=== PATIENT | male | born 1980 ===

== ENCOUNTER 2023-10-04 06:51 | Day surgery (SDC) | payer OTHER ==
[~2023-10-04 06:51] MED LIST: [UNRECOGNIZED DRUG - OTHER]
[2023-10-04] MEDS ORDERED: CEFTRIAXONE SODIUM 2,000 MG VIAL IV ONE (16:00)
[2023-10-04] MEDS ORDERED: BUPIVACAINE LIPOSOME/PF 266 MG/20 ML VIAL IJ ONE (16:00)
[2023-10-04] MEDS ORDERED: ENOXAPARIN SODIUM 40 MG/0.4 ML SYRINGE SUBCUTANEO ONE (16:00)
[2023-10-04] MEDS ORDERED: METRONIDAZOLE/SODIUM CHLORIDE 500 MG/100 ML PIGGYBACK IV ONE (16:00)
[2023-10-04] MEDS ORDERED: SUGAMMADEX SODIUM 200 MG/2 ML VIAL IV ONE (16:30)
[2023-10-04] MEDS ORDERED: PERCOCET 5-3251 EACH PO (17:13)
[2023-10-04] MEDS ORDERED: NEURONTIN300 MG PO (17:13)
[2023-10-04] MEDS ORDERED: CELEBREX200MG PO (17:17)
[2023-10-04] MEDS ORDERED: POLY119PG PO (17:17)
== END 2023-10-04 21:30 | disposition home or self-care (01) ==
LOC: CIR.AMB 06:51
PROVIDERS: ATTEND Surgery
DX: K40.90 Unilateral inguinal hernia, without obstruction or gangrene, not specified as recurrent (principal); I10 Essential (primary) hypertension
CPT/HCPCS: 49650; C1781